=== PATIENT | female | born 1930 | race Caucasian/White ===

== ENCOUNTER 2017-06-04 15:34 | Outpatient (CLI) ==
[2015-11-20 17:26] VITALS: BMI 23.3
[2017-06-04 15:57] LABS: BILIRUBIN,URINE Negative (NEGATIVE); KETONES,URINE Negative (NEGATIVE); LEUKOCYTE ESTERASE ,URINE 1+ (NEGATIVE); NITRITE,URINE Negative (NEGATIVE); PH,URINE 6.5 (5-9); PROTEIN,URINE Negative (NEGATIVE); URINE, BLOOD Trace-lysed (NEGATIVE)
[2017-06-04 16:00] LABS: ADD URINE MICROSCOPIC YES
[2017-06-04 16:09] LABS: BACTERIA,URINE TRACE (NOT PRESENT)
== END 2017-06-04 15:35 | disposition home or self-care (01) ==
LOC: LAB 15:34
PROVIDERS: ATTEND Internal Medicine
DX: R19.7 Diarrhea, unspecified (principal); F98.1 Encopresis not due to a substance or known physiological condition
CPT/HCPCS: 81001; 87086

== ENCOUNTER 2017-08-02 14:19 | Outpatient (CLI) ==
[2017-06-15 21:55] VITALS: BMI 26.1
[2017-08-02 14:27] LABS: BILIRUBIN,URINE Negative (NEGATIVE); KETONES,URINE Negative (NEGATIVE); LEUKOCYTE ESTERASE ,URINE Negative (NEGATIVE); NITRITE,URINE Negative (NEGATIVE); PH,URINE 7.5 (5-9); PROTEIN,URINE Negative (NEGATIVE); URINE, BLOOD Negative (NEGATIVE)
[2017-08-02 14:28] LABS: ADD URINE MICROSCOPIC NO
== END 2017-08-02 14:20 | disposition home or self-care (01) ==
LOC: NONPT 14:19
PROVIDERS: ATTEND Internal Medicine
DX: E86.0 Dehydration (principal); R53.1 Weakness
CPT/HCPCS: 81001; 87086

== ENCOUNTER 2017-08-02 15:28 | Observation (INO) ==
[2017-08-02] MEDS ORDERED: SODIUM CHLORIDE 1,000 ML IV STA (15:35)
--- NOTE | 2017-08-02 16:13 | DI ---
EXAM: Chest one view, frontal view only. HISTORY: Chest pain. COMPARISON: 06/23/2013. FINDINGS: Heart size is normal. There is no vascular congestion. Calcified granulomatous changes p resent. The lungs are otherwise clear without pleural effusion or pneumothorax. No acute osseous ab normality identified. IMPRESSION: No acute process.
--- NOTE | 2017-08-02 17:12 | ED.PDOC ---
General ED Provider: Dr. ERICA HINES JR Chief Complaint: Weakness Stated Complaint[facility] et confusion. Arrived per [facility]. Hx dementia x 9 years. Elev temp 100.0 TA on ER arrival. [ End ]100.0 83 24 94 141/69. elevated blood sugar, mild ataxia,. dementia, cerebral atrophy, B12 deficiancy , IBS,overactive bladder,. THY CHOL ANX ARTH. [facility]. Arrived per [facility]. Hx dementia x 9 years. Elev temp 100.0 TA on ER arrival. [ End ] Time Seen by Physician: 15:35 Information Source: EMT Exam Limitations: No limitations Primary Care Provider: JOSE WEBB Nursing and Triage Documentation Reviewed and Agree: No Reviewed sepsis parameters & appropriate labs ordered?: Yes System Inflammatory Response Syndrome: Pulse >90 BPM Sepsis Protocol: For patient's 13 years and over: Temp is 96.8 and below OR 101 and greater Pulse >90 BPM Resp >20/minute Acutely Altered Mental Status Are patient's symptoms suggestive of a new infection, such as: -Pneumonia -Skin, Soft Tissue -Endocarditis -UTI -Bone, Joint Infection -Implantable Device -Acute Abdominal Infection -Wound Infection -Meningitis -Blood Stream Catheter Infection -Unknown System Inflammatory Response Syndrome: Not Applicable Review of Systems - Review Of Systems Constitutional: Reports: Malaise, Weakness Eyes: Reports: No symptoms Ears, Nose, Mouth, Throat: Reports: No symptoms Respiratory: Reports: No symptoms Cardiac: Reports: No symptoms GI: Reports: No symptoms : Reports: No symptoms Musculoskeletal: Reports: Other Skin: Reports: No symptoms Neurological: Reports: Cognitive dysfunction, Weakness Endocrine: Reports: No symptoms Hematologic/Lymphatic: Reports: No symptoms All Other Systems: Other Past Medical History - Past Medical History Previously Healthy: Yes Endocrine: Reports: Hypothyroid, Dyslipidemia Cardiovascular: Reports: None Respiratory: Reports: None Hematological: Reports: None Gastrointestinal: Reports: None Genitourinary: Reports: None 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: Dementia (Non-Alzheimer's ) Musculoskeletal: Reports: None Cancer: Reports: None Last Menstrual Period: unknown Other Pertinent Past Medical History: Allergic Rhinitis - Surgical History General Surgical History: Reports: Other - Family History Family History: Reports: Unknown - Social History Smoking Status: Never smoker Hx Substance Use: No Alcohol Screening: None Physical Exam - Physical Exam Appearance: Well-appearing Eyes: [place], EOMI, Conjunctiva clear ENT: Ears normal, Nose normal, Oropharynx normal Neck: Supple Respiratory: Airway patent, Breath sounds clear, Breath sounds equal, Respirations nonlabored Cardiovascular: RRR, Pulses normal, No rub, No murmur GI/: Soft, Nontender, No masses, Bowel sounds normal, No Organomegaly Musculoskeletal: No edema, Limited ROM, Limited strength, Calf tenderness ( bilateral without edema not in venous distribution) Skin: Warm, Dry, Normal color Neurological: Sensation intact, Cranial nerves intact, Alert, Disoriented Psychiatric: Affect appropriate (but often angry) Critical Care Note - Critical Care Note Total Time (mins): 20 Course - Course Hematology/Chemistry: 08/02/17 15:55 08/02/17 15:55 Orders, Labs, Meds: Lab Review 08/02/17 08/02/17 08/02/17 15:35 15:55 15:55 WBC 7.34 RBC 4.01 L Hgb 12.3 Hct 36.9 L MCV 92.0 MCH 30.7 MCHC 33.3 RDW Coeff of Daren 13.8 Plt Count 170 Immature Gran % (Auto) 0.4 Neut % (Auto) 72.4 Lymph % (Auto) 13.6 [place] % (Auto) 11.7 H Eos % (Auto) 1.5 Baso % (Auto) 0.4 Immature Gran # (Auto) 0.0 Neut # 5.3 Lymph # 1.0 [place] # 0.9 Eos # 0.1 Baso # 0.0 D-Dimer (Manual) Puncture Site Rr O2 Saturation 95.0 ABG pH 7.498 H ABG pCO2 33.4 L ABG pO2 66.0 L ABG HCO3 25.9 ABG Total CO2 27 ABG Base Excess 3 H Vikas Test + FiO2 % 21.0 Sodium 136 Potassium 3.6 Chloride 102 Carbon Dioxide 24 Anion Gap 13.6 BUN 13 Creatinine 0.81 Estimated GFR (MDRD) 67.00 BUN/Creatinine Ratio 16.04 Glucose 114 Lactic Acid Calcium 8.3 Total Bilirubin 0.4 AST 11 L ALT 6 L Alkaline Phosphatase 77 Total Creatine Kinase 23 Troponin I < 0.0100 B-Natriuretic Peptide Total Protein 5.7 L Albumin 2.9 L Globulin 2.8 Albumin/Globulin Ratio 1.04 Procalcitonin Influenza A (Rapid) Influenza B (Rapid) 08/02/17 08/02/17 12 15:55 15:55 15:55 WBC RBC Hgb Hct MCV MCH MCHC RDW Coeff of Daren Plt Count Immature Gran % (Auto) Neut % (Auto) Lymph % (Auto) [place] % (Auto) Eos % (Auto) Baso % (Auto) Immature Gran # (Auto) Neut # Lymph # [place] # Eos # Baso # D-Dimer (Manual) Puncture Site O2 Saturation ABG pH ABG pCO2 ABG pO2 ABG HCO3 ABG Total CO2 ABG Base Excess Vikas Test FiO2 % Sodium Potassium Chloride Carbon Dioxide Anion Gap BUN Creatinine Estimated GFR (MDRD) BUN/Creatinine Ratio Glucose Lactic Acid 7.7 Calcium Total Bilirubin AST ALT Alkaline Phosphatase Total Creatine Kinase Troponin I B-Natriuretic Peptide 50 Total Protein Albumin Globulin Albumin/Globulin Ratio Procalcitonin < 0.05 Influenza A (Rapid) Influenza B (Rapid) 08/02/17 08/02/17 16:20 17:46 WBC RBC Hgb Hct MCV MCH MCHC RDW Coeff of Daren Plt Count Immature Gran % (Auto) Neut % (Auto) Lymph % (Auto) [place] % (Auto) Eos % (Auto) Baso % (Auto) Immature Gran # (Auto) Neut # Lymph # [place] # Eos # Baso # D-Dimer (Manual) 728.81 Puncture Site O2 Saturation ABG pH ABG pCO2 ABG pO2 ABG HCO3 ABG Total CO2 ABG Base Excess Vikas Test FiO2 % Sodium Potassium Chloride Carbon Dioxide Anion Gap BUN Creatinine Estimated GFR (MDRD) BUN/Creatinine Ratio Glucose Lactic Acid Calcium Total Bilirubin AST ALT Alkaline Phosphatase Total Creatine Kinase Troponin I B-Natriuretic Peptide Total Protein Albumin Globulin Albumin/Globulin Ratio Procalcitonin Influenza A (Rapid) Negative Influenza B (Rapid) Negative Orders Category Date Time Status ABG DRAW REQUEST Stat CARDIO 08/02/17 15:35 Completed EKG-(ED ONLY) Stat CARDIO 08/02/17 15:35 Completed ED INDUSTRY OPERATIONS INVESTIGATOR APPLIED .ONCE EMERGENCY 08/02/17 15:35 Active ED IV/MEDIPORT/POWERPORT .ONCE EMERGENCY 08/02/17 15:35 Active ABG Stat LAB 08/02/17 15:35 Completed B-TYPE NATRIURETIC PEPTIDE Stat LAB 08/02/17 15:55 Completed BLOOD CULTURE Stat LAB 08/02/17 15:55 Received CBC W/ AUTO DIFF Stat LAB 08/02/17 15:55 Completed COMPREHENSIVE METABOLIC PANEL Stat LAB 08/02/17 15:55 Completed CREATINE KINASE Stat LAB 08/02/17 15:55 Completed D-DIMER Stat LAB 08/02/17 16:20 Completed FLU A & B RAPID TEST [RAPID FLU A/B] Stat LAB 08/02/17 17:46 Completed LACTIC ACID Stat LAB 08/02/17 15:55 Completed PROCALCITONIN Stat LAB 08/02/17 15:55 Completed TROPONIN I Stat LAB 08/02/17 15:55 Completed 0.9 % Sodium Chloride [Saline Flush] MEDS 08/02/17 15:35 Active 1 syr IVF PRN PRN Sodium Chloride 0.9% [Sodium Chloride] 1,000 ml MEDS 08/02/17 15:35 Discontinued IV BOLUS CHEST, 1V AP ONLY Stat RADS 08/02/17 15:35 Completed Medications Generic Name Dose Route Start Last Admin Trade Name Freq PRN Reason Stop Dose Admin Sodium Chloride 1 syr 08/02/17 15:35 Saline Flush IVF PRN PRN To flush IV Discontinued Medications Generic Name Dose Route Start Last Admin Trade Name Freq PRN Reason Stop Dose Admin Sodium Chloride 1,000 mls @ 1,000 mls/hr 08/02/17 15:35 08/02/17 15:51 Sodium Chloride IV 08/02/17 16:34 1,000 mls/hr BOLUS STA Administration Vital Signs: Temp Pulse Resp BP Pulse Ox 08/02/17 15:30 100.0 F H 83 24 141/69 H 94 L Departure - Departure Time of Disposition: 18:41 Disposition: PLACED OBSERVATION Discharge Problem: Muscle weakness, Dehydration Dementia Qualifiers: Dementia type: unspecified type Dementia behavioral disturbance: with behavioral disturbance Qualified Code(s): F03.91 - Unspecified dementia with behavioral disturbance Condition: Stable Pt referred to PMD for follow-up: Yes Allergies/Adverse Reactions: Allergies yellow apples Adverse Reaction (Uncoded 08/02/17 16:15) Home Medications: Ambulatory Orders Cholecalciferol (Vitamin D3) [Vitamin D3] 4,000 unit PO DAILY 11/19/15 Donepezil HCl 10 mg PO DAILY 11/19/15 Fluticasone Propionate 110 Mcg [Flovent Hfa 110 Mcg] 2 puff IH BID 11/19/15 L.acidoph,Paracasei, B.lactis [Probiotic] 1 each PO DAILY 11/19/15 Levothyroxine Sodium [Tirosint] 75 mcg PO DAILY 11/19/15 Loratadine 10 mg PO DAILY 11/19/15 Memantine HCl [Namenda Xr] 28 mg PO DAILY 11/19/15 Divalproex Sodium [Depakote Sprinkle] 125 mg PO BID 06/15/17 Solifenacin Succinate [Vesicare] 5 mg PO BEDTIME 06/15/17 Acetaminophen 500 mg PO Q6HR PRN 08/02/17 Alprazolam [Xanax] 0.25 mg PO BID PRN 08/02/17 Estrogens, Conjugated [Premarin Vaginal Cream] 1 applic VG DAILY PRN 08/02/17 Metronidazole 70 ml TP DAILY 08/02/17 Triamcinolone Acetonide [Triamcinolone Acetonide 0.025% Cream] 15 gm TP BID PRN 08/02/17 Transfer Form Completed: No Disposition Discussed With: Patient, Family
[2017-08-02] MEDS ORDERED: TYLENOL PO PRN ×2 (18:43→21:21)
[2017-08-02] MEDS ORDERED: PREMARIN VAGINAL CREAM VAGINAL PRN (18:46)
[2017-08-02] MEDS ORDERED: TRIAMCINOLONE ACETONIDE TP PRN (18:46)
[2017-08-02 20:05] VITALS: BMI 27.6
[2017-08-02] MEDS ORDERED: VESICARE PO SCH (21:00)
[2017-08-02] MEDS ORDERED: DIVALPROEX SODIUM 125 MG PO SCH (21:00)
[2017-08-02] MEDS ORDERED: FLOVENT HFA 110 MCG IH SCH (21:00)
[2017-08-02] MEDS ORDERED: XANAX PO PRN (21:21)
[2017-08-02] MEDS: SODIUM CHLORIDE 1,000 ML IV SCH (23:21)
[2017-08-03] MEDS ORDERED: XANAX PO PRN (08:00)
[2017-08-03] MEDS ORDERED: XANAX PO STA (09:09)
--- NOTE | 2017-08-03 09:45 | PCM.PROG ---
Attending Provider: ATTENDING PROVIDER: Dr. JOSE WEBB This patient is seen with Maci Stokes, Nurse Practitioner. DATE OF SERVICE: 08/03/17 SUBJECTIVE: This 87 year old WHITE/ F was hospitalized 08/02/17. Alert up to use the bathroom. Confused due to dementia. Still experiencing leg weakness. REVIEW OF SYSTEMS: CONSTITUTIONAL: No night sweats. No fatigue, malaise, lethargy. No fever or chills. General weakness. HEENT: Eyes: No visual changes. No eye pain. No eye discharge. ENT: No runny nose. No epistaxis. No sinus pain. No odynophagia. No congestion. RESPIRATORY: No cough, no congestion. No hemoptysis. No shortness of breath. CARDIOVASCULAR: No angina symptoms. No CHF symptoms. No atypical chest pain for CAD. No palpitations. No orthopnea.. GASTROINTESTINAL: No abdominal pain. No nausea or vomiting. No diarrhea or constipation. No hematemesis. No hematochezia. GENITOURINARY: No urgency. No frequency. No dysuria. No hematuria. No obstructive symptoms. No discharge. No pain. No significant abnormal bleeding. MUSCULOSKELETAL: No musculoskeletal pain; no joint swelling. NEUROLOGICAL: Awake, alert, confusion. No headache. No neck pain. No syncope. No seizures. No dizziness. PSYCHIATRIC: Not anxious. No depression. No suicidal thoughts. No homicidal thoughts. SKIN: No rash. No lesions. No wounds. ENDOCRINE: No unexplained weight loss. No weight gain. HEMATOLOGIC/LYMPHATIC: No anemia. No purpura. No petechiae. No prolonged or excessive bleeding. No palpable lymph nodes. PHYSICAL EXAMINATION: GENERAL: The patient is awake, alert and oriented, in no distress. VITAL SIGNS: Temperature 98.9 F, Pulse 83, Respiratory Rate 18, BP 135/72, Pulse Ox 92% HEENT: Head normocephalic, atraumatic. Eyes: Extraocular muscles are intact. Pupils are equal, round and reactive to light and accommodation. Ears: No lesions. Nose appeared normal. Throat: No exudate or erythema. NECK: Supple. No JVD, no carotid bruit. No lymphadenopathy or thyromegaly. LUNGS: Diminished breath sounds. Clear to auscultation. Percussion note normal. Chest symmetrical. HEART: S1, S2, no S3. No murmurs. No cyanosis or clubbing. No ascites. Pulses: Dorsalis pedis and posterior tibial pulses +1 to +2 both sides. ABDOMEN: Soft. Non-tender. Bowel sounds active. No CVA tenderness. No mass felt. EXTREMITIES: No edema. Full range of motion of all extremities, equal. NEUROLOGIC: No focal deficit. Cranial nerves II through XII are grossly intact. No headache, no double vision or headache. SKIN: Not dry. Intact. Turgor-normal. LYMPHATIC: No palpable lymph nodes/no lymphedema. MUSCULOSKELETAL: Normal joints with no swelling. Muscle tone is normal. LAB REVIEW: 08/03/17 01:20 08/03/17 01:20 08/03/17 01:31: Urine Color Yellow, Urine Clarity Clear, Urine pH 7.0, Ur Specific [place] 1.015, Urine Protein Negative, Urine Glucose (UA) Negative, Urine Ketones Trace, Urine Blood Trace-intact, Urine Nitrite Negative, Urine Bilirubin Negative, Urine Urobilinogen 0.2, Ur Leukocyte Esterase 1+, Urine Microscopic RBC 2-5, Urine Microscopic WBC 10-20, Ur Squamous Epith Cells 0-2, Ur Renal Epithelial Cell 0-2, Urine Bacteria Trace 08/03/17 01:20: Sodium 140, Potassium 3.6, Chloride 105, Carbon Dioxide 26, Anion Gap 12.6, BUN 13, Creatinine 0.80, Estimated GFR (MDRD) 68.00, BUN/ Creatinine Ratio 16.25, Glucose 112, Calcium 8.1 L, Total Bilirubin 0.3, AST 11 L, ALT 6 L, Alkaline Phosphatase 69, Total Protein 5.4 L, Albumin 2.6 L, Globulin 2.8, Albumin/Globulin Ratio 0.93 08/03/17 01:20: WBC 6.58, RBC 3.87 L, Hgb 12.0, Hct 36.1 L, MCV 93.3, MCH 31.0, MCHC 33.2, RDW Coeff of Daren 13.7, Plt Count 151, Immature Gran % (Auto) 0.3, Neut % (Auto) 68.2, Lymph % (Auto) 15.5, [place] % (Auto) 12.2 H, Eos % (Auto) 3.3 , Baso % (Auto) 0.5, Immature Gran # (Auto) 0.0, Neut # 4.5, Lymph # 1.0, [place] # 0.8, Eos # 0.2, Baso # 0.0 08/03/17 01:20: Total Creatine Kinase 23, Troponin I < 0.0100 ASSESSMENT: Please see below. Acute decline in physical function Possible UTI Dementia PLAN: IV Rocephin [address] of brain without Plan and coordination of the patient's care discussed in the presence of Seam Checker and nurse. SCRIBED BY: SONG NARANJO, Bench Worker Hollow Handle scribed while in presence of service performed by Dr. Webb/Maci Stokes APRN on 08/03/17 ([id number])
[2017-08-03] MEDS: FLOVENT HFA 110 MCG IH SCH ×2 (09:58→20:27)
[2017-08-03] MEDS: METRONIDAZOLE TP SCH (09:59)
[2017-08-03] MEDS: NON-FORMULARY MEDICATION (Levothyroxine Sodium [Tirosint] 75 MCG) PO SCH (10:00)
[2017-08-03] MEDS: CHOLECALCIFEROL 4000 UNIT PO SCH (10:01)
[2017-08-03] MEDS: CLARITIN PO SCH (10:01)
[2017-08-03] MEDS: [UNRECOGNIZED DRUG - OTHER] PO SCH (10:02)
[2017-08-03] MEDS: DIVALPROEX SODIUM 125 MG PO SCH ×2 (10:02→20:26)
[2017-08-03] MEDS: NON-FORMULARY MEDICATION (L.Acidoph,Paracasei, B.Lactis [Probiotic] 1 EACH) PO SCH (10:02)
[2017-08-03] MEDS: ROCEPHIN 1 GM in SODIUM CHLORIDE 50 ML IV SCH (10:06)
--- NOTE | 2017-08-03 12:36 | CT ---
EXAM: CT BRAIN HISTORY: Sudden change in mental status, unable to stand TECHNIQUE: CT brain without intravenous contrast. 5-mm axial sections with Reformations. COMPARISON: 06/15/2017 FINDINGS: There is generalized atrophy. Ventriculomegaly is present in part likely related to a compensatory n ature to the atrophy. There is at least moderate periventricular and deep white matter low attenuatio n which although nonspecific is suggestive of chronic microvascular ischemic change. These findings are stable. Brain otherwise is unremarkable without distinct evidence of hemorrhage or large vessel distribution recent ischemic infarction. There is no suggestion of acute hydrocephalus or subdural fluid collecti on. No mass or mass effect. Cranium is within normal limits. Mastoid processes are aerated. The visualized paranasal sinuses a re clear. IMPRESSION: Involutional changes similar to that seen previously with no obvious acute intracranial abnormality. Previously seen small subdural hematoma has resolved.
[2017-08-03] MEDS: SODIUM CHLORIDE 1,000 ML IV SCH (12:48)
[2017-08-03] MEDS ORDERED: ARICEPT PO SCH (21:00)
[2017-08-03] MEDS ORDERED: NON-FORMULARY MEDICATION (Memantine Hcl [Namenda Xr] 28 MG) PO SCH (21:00)
[2017-08-03] MEDS ORDERED: VESICARE PO SCH (21:00)
[2017-08-04] MEDS: NON-FORMULARY MEDICATION (Levothyroxine Sodium [Tirosint] 75 MCG) PO SCH (05:52)
[2017-08-04] MEDS: NON-FORMULARY MEDICATION (L.Acidoph,Paracasei, B.Lactis [Probiotic] 1 EACH) PO SCH (08:58)
[2017-08-04] MEDS: DIVALPROEX SODIUM 125 MG PO SCH (08:58)
[2017-08-04] MEDS: [UNRECOGNIZED DRUG - OTHER] PO SCH (08:59)
[2017-08-04] MEDS: CHOLECALCIFEROL 4000 UNIT PO SCH (08:59)
[2017-08-04] MEDS: CLARITIN PO SCH (08:59)
[2017-08-04] MEDS: FLOVENT HFA 110 MCG IH SCH (08:59)
[2017-08-04] MEDS: METRONIDAZOLE TP SCH (09:00)
[2017-08-04 10:06] VITALS: BP 133/72; TEMP 97.5
[2017-08-04] MEDS ORDERED: ROCEPHIN IM STA (12:01)
[2017-08-04] MEDS ORDERED: LIDOCAINE HCL 1% SDV SUBCUT STA (12:01)
[2017-08-04] MEDS ORDERED: ROCEPHIN ONE (12:11)
[2017-08-04] MEDS ORDERED: LIDOCAINE 2% 20 ML MDV ONE (12:12)
[2017-08-04] MEDS: ROCEPHIN 1 GM in SODIUM CHLORIDE 50 ML IV SCH (12:41)
--- NOTE | 2017-08-17 14:28 | PN ---
DATE OF SERVICE: 08/03/17 SUBJECTIVE: The patient is feeling fine. She is alert and her appetite has improved. The son is present in the room. She is still weak in the legs. CAT scan did not show any acute findings. PHYSICAL EXAMINATION: GENERAL: The patient is oriented to person. VITAL SIGNS: Temperature 98.9, pulse 83, respiratory rate 18, blood pressure 135/72 and pulse ox 92%. HEENT: Head normocephalic, atraumatic. Eyes: Extraocular muscles are intact. Pupils are equal, round and reactive to light and accommodation. Ears: No lesions. Nose appeared normal. Throat: No exudate or erythema. NECK: Supple. No JVD, no carotid bruit. No lymphadenopathy or thyromegaly. LUNGS: Decreased breath sounds but clear to auscultation. Percussion note normal. Chest symmetrical. HEART: S1, S2, no S3. No murmurs. No cyanosis or clubbing. No ascites. Pulses: Dorsalis pedis and posterior tibial pulses +1 to +2 both sides. ABDOMEN: Soft. Nontender. Bowel sounds active. No CVA tenderness. No mass felt. EXTREMITIES: No edema. Full range of motion of all extremities, equal. NEUROLOGIC: No focal deficit. Cranial nerves II through XII are grossly intact. No headache, no double vision or headache. SKIN: Not dry. Intact. Turgor - normal. LYMPHATIC: No palpable lymph nodes/no lymphedema. MUSCULOSKELETAL: Normal joints with no swelling. Muscle tone is normal. LABS: Hgb 12.0, hct 36, creatinine 0.8, BUN 13. ASSESSMENT: 1. Worsening of dementia 2. Weakness in the legs with inability to ambulate like she had it before. NOTE: The patient was able to ambulate with the walker. PLAN: 1. Hydration status needs to be improved 2. Continue Keflex for possibility of urinary tract infection 3. Appetite has improved 4. Encouraged the patient to eat. 5. The patient is living in [facility]. She won't be able to go back there. The family has agreed to transfer the patient to [facility] where she will further undergo PT/OT 6. We will continue all the other medication has before. TIME SPENT: More than 30 minutes. Plan and coordination of the patient's care discussed in the presence of nurse. CHRISTY
--- NOTE | 2017-08-17 14:39 | DS ---
DATE OF SERVICE: 08/04/17 FINAL DIAGNOSIS: 1. Dehydration 2. Worsening of dementia 3. Weakness could be related to dehydration, worsening of dementia with inactivity 4. Possibility of kidney infection. 5. Status post cholecystectomy 6. Thyroidectomy on Synthroid supplement 7. Depression with anxiety DISCHARGE INSTRUCTIONS: Discharge to [facility]. Continue home medication. Followup with Dr. Vides in 5-7 days. MEDICATIONS AT DISCHARGE: Levothyroxine Namenda Depakote Xanax Premarin Vaginal Cream NEW PRESCRIPTIONS: Keflex DIET INSTRUCTIONS: As tolerated ACTIVITY: Gradually resume activities as tolerated. SMOKING: Never smoker DISEASE SPECIFIC EDUCATION: Hydration PT/OT Antibiotic use. HOSPITAL COURSE: 87 year old white female who has dementia but she is up and about walks with the walker was hospitalized with weakness and inability to walk. The patient had mild dehydration clinically was given IV fluids also antibiotics was given with possibility of urinary tract infection. The colony count was less than 30, 000 but very likely could be kidney infection which was subclinical probably made the condition worse. In any case on discharge the patient was more alert and her appetite had improved. She was still weak She has been resident of Assisted Living and now with not able to walk she would be discharged to [facility]. The family was agreeable to this change. The patient was discharged on PT/OT. CONDITION: Stable. TIME SPENT: More than 60 minutes. CHRISTY
--- NOTE | 2017-08-17 14:40 | PN ---
08/02/17: Level 5, Observation 08/03/17: Intermediate. Observation 08/04/17: D as in discharge Observation . MTDD
== END 2017-08-04 15:03 | disposition home or self-care (01) ==
LOC: ED 15:28 → MEDSURG A 17:59
PROVIDERS: ADMIT Internal Medicine; ATTEND Internal Medicine
DX: E86.0 Dehydration (principal); M62.81 Muscle weakness (generalized); F03.91 Unspecified dementia, unspecified severity, with behavioral disturbance; F41.8 Other specified anxiety disorders; R50.9 Fever, unspecified; E89.0 Postprocedural hypothyroidism; R26.2 Difficulty in walking, not elsewhere classified; Z90.49 Acquired absence of other specified parts of digestive tract; Z79.899 Other long term (current) drug therapy
CPT/HCPCS: 36415; 80053; 81001; 82550; 82803; 83605; 83880; 84145; 84484; 85025; 85379; 87040; 87086; 87804; 93005; 93010; 96360; 99284

== ENCOUNTER 2017-08-16 12:33 | Emergency (ER) ==
[2017-08-16 12:43] VITALS: BP 128/70; TEMP 96.9; BMI 24.7
--- NOTE | 2017-08-16 13:30 | ED.PDOC ---
General ED Provider: Dr. LAURA MCKINLEY Chief Complaint: Weakness Stated Complaint: Daughter states patient was referred here by Dr Webb after her nurse heard crackles in her lt chest this morning. Also patient has been more short of breath recently along with difficulty witn ambulation Time Seen by Physician: 13:00 Mode of Arrival: Ambulance Information Source: Patient, EMT Exam Limitations: Dementia Primary Care Provider: JOSE WEBB Referred to ED by: PCP Nursing and Triage Documentation Reviewed and Agree: Yes Reviewed sepsis parameters & appropriate labs ordered?: Yes System Inflammatory Response Syndrome: Not Applicable Sepsis Protocol: For patient's 13 years and over: Temp is 96.8 and below OR 101 and greater Pulse >90 BPM Resp >20/minute Acutely Altered Mental Status Are patient's symptoms suggestive of a new infection, such as: -Pneumonia -Skin, Soft Tissue -Endocarditis -UTI -Bone, Joint Infection -Implantable Device -Acute Abdominal Infection -Wound Infection -Meningitis -Blood Stream Catheter Infection -Unknown Review of Systems - Review Of Systems Constitutional: Reports: Weakness Eyes: Reports: No symptoms Ears, Nose, Mouth, Throat: Reports: No symptoms Respiratory: Reports: Wheezing Cardiac: Reports: No symptoms GI: Reports: No symptoms : Reports: No symptoms Musculoskeletal: Reports: No symptoms Skin: Reports: No symptoms Neurological: Reports: Weakness Endocrine: Reports: No symptoms Hematologic/Lymphatic: Reports: No symptoms All Other Systems: Reviewed and Negative Past Medical History - Past Medical History Previously Healthy: Yes Endocrine: Reports: Hypothyroid, Dyslipidemia Cardiovascular: Reports: None Respiratory: Reports: None Hematological: Reports: None Gastrointestinal: Reports: None Genitourinary: Reports: None 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: Dementia (Non-Alzheimer's ) Musculoskeletal: Reports: None Cancer: Reports: None Last Menstrual Period: menopause Other Pertinent Past Medical History: Allergic Rhinitis - Surgical History General Surgical History: Reports: Other - Family History Family History: Reports: Unknown - Social History Smoking Status: Never smoker Hx Substance Use: No Alcohol Screening: None Physical Exam - Physical Exam Appearance: Well-appearing Ill-appearing: None Pain Distress: None Eyes: [place], EOMI, Conjunctiva clear ENT: Ears normal, Nose normal, Oropharynx normal Respiratory: Airway patent, Breath sounds clear, Breath sounds equal Cardiovascular: RRR, Pulses normal, No rub GI/: Soft, Nontender, No masses, Bowel sounds normal, No Organomegaly Musculoskeletal: Normal strength Skin: Warm, Dry Neurological: Sensation intact, Motor intact, Reflexes intact, Cranial nerves intact, Alert, Disoriented Psychiatric: Affect appropriate, Mood appropriate Critical Care Note - Critical Care Note Total Time (mins): 0 Course - Course Hematology/Chemistry: 08/16/17 13:50 08/16/17 13:50 Orders, Labs, Meds: Lab Review 08/16/17 08/16/17 08/16/17 13:06 13:50 13:50 WBC 8.65 RBC 4.61 Hgb 13.9 Hct 42.1 MCV 91.3 MCH 30.2 MCHC 33.0 RDW Coeff of Daren 13.6 Plt Count 363 Immature Gran % (Auto) 1.3 Neut % (Auto) 71.8 Lymph % (Auto) 14.3 [place] % (Auto) 8.3 Eos % (Auto) 3.6 Baso % (Auto) 0.7 Immature Gran # (Auto) 0.1 Neut # 6.2 Lymph # 1.2 [place] # 0.7 Eos # 0.3 Baso # 0.1 Puncture Site Rr O2 Saturation 95.0 ABG pH 7.513 H* ABG pCO2 36.9 ABG pO2 69.0 L ABG HCO3 29.7 H ABG Total CO2 31 H ABG Base Excess 7 H Vikas Test + O2 Delivery Device Oxygen Liter Flow FiO2 % 21.0 Sodium 136 Potassium 3.6 Chloride 94 L Carbon Dioxide 32 H Anion Gap 13.6 BUN 11 Creatinine 0.82 Estimated GFR (MDRD) 66.00 BUN/Creatinine Ratio 13.41 Glucose 102 Calcium 9.5 Total Bilirubin 0.3 AST 15 ALT 8 L Alkaline Phosphatase 69 Total Protein 6.7 Albumin 2.7 L Globulin 4.0 Albumin/Globulin Ratio 0.68 Urine Color Urine Clarity Urine pH Ur Specific [place] Urine Protein Urine Glucose (UA) Urine Ketones Urine Blood Urine Nitrite Urine Bilirubin Urine Urobilinogen Ur Leukocyte Esterase Urine Microscopic WBC Ur Squamous Epith Cells 08/16/17 08/16/17 16:04 16:42 WBC RBC Hgb Hct MCV MCH MCHC RDW Coeff of Daren Plt Count Immature Gran % (Auto) Neut % (Auto) Lymph % (Auto) [place] % (Auto) Eos % (Auto) Baso % (Auto) Immature Gran # (Auto) Neut # Lymph # [place] # Eos # Baso # Puncture Site Rr O2 Saturation 94.0 L ABG pH 7.464 H ABG pCO2 40.9 ABG pO2 67.0 L ABG HCO3 29.4 H ABG Total CO2 31 H ABG Base Excess 6 H Vikas Test + O2 Delivery Device Nc Oxygen Liter Flow 2.00 FiO2 % 28.0 Sodium Potassium Chloride Carbon Dioxide Anion Gap BUN Creatinine Estimated GFR (MDRD) BUN/Creatinine Ratio Glucose Calcium Total Bilirubin AST ALT Alkaline Phosphatase Total Protein Albumin Globulin Albumin/Globulin Ratio Urine Color Yellow Urine Clarity Clear Urine pH 6.0 Ur Specific [place] 1.010 Urine Protein Negative Urine Glucose (UA) Negative Urine Ketones Trace Urine Blood Negative Urine Nitrite Negative Urine Bilirubin Negative Urine Urobilinogen 0.2 Ur Leukocyte Esterase 1+ Urine Microscopic WBC 2-5 Ur Squamous Epith Cells 5-10 Orders Category Date Time Status ABG DRAW REQUEST Stat CARDIO 08/16/17 13:10 Completed ABG DRAW REQUEST Stat CARDIO 08/16/17 16:50 Completed EKG-(IP & OP ONLY) Stat CARDIO 08/16/17 14:42 Completed NEBULIZER TREATMENT Stat CARDIO 08/16/17 15:30 Completed ABG Stat LAB 08/16/17 13:06 Completed ABG Stat LAB 08/16/17 16:42 Completed CBC W/ AUTO DIFF Stat LAB 08/16/17 13:50 Completed CMP [COMPREHENSIVE METABOLIC PANEL] Stat LAB 08/16/17 13:50 Completed URINALYSIS C & S IF INDICATED Stat LAB 08/16/17 16:04 Completed Albuterol Sulfate 0.083% Neb [Albuterol 0.083% Neb] MEDS 08/16/17 15:30 Discontinued 1 vial NEB ONCE STA CHEST, 2 VIEWS PA & LAT Stat RADS 08/16/17 13:32 Completed Medications Discontinued Medications Generic Name Dose Route Start Last Admin Trade Name Freq PRN Reason Stop Dose Admin Albuterol Sulfate 1 vial 08/16/17 15:30 08/16/17 15:39 Albuterol 0.083% Neb NEB 08/16/17 15:31 1 vial ONCE STA Administration Vital Signs: Temp Pulse Resp BP Pulse Ox 08/16/17 12:34 96.9 F L 60 12 128/70 94 L Departure - Departure Time of Disposition: 18:00 Disposition: HOME SELF-CARE Discharge Problem: Weakness, Chest congestion Discharge Problem: (Ruled Out): COPD (chronic obstructive pulmonary disease) Instructions: Weakness (ED) Condition: Fair Pt referred to PMD for follow-up: Yes (Dr Webb) Allergies/Adverse Reactions: Allergies yellow apples Adverse Reaction (Uncoded 08/02/17 16:15) Home Medications: Ambulatory Orders Cholecalciferol (Vitamin D3) [Vitamin D3] 4,000 unit PO DAILY 11/19/15 Donepezil HCl 10 mg PO BEDTIME 11/19/15 Fluticasone Propionate 110 Mcg [Flovent Hfa 110 Mcg] 2 puff IH BID 11/19/15 L.acidoph,Paracasei, B.lactis [Probiotic] 1 each PO DAILY 11/19/15 Levothyroxine Sodium [Tirosint] 75 mcg PO DAILY 11/19/15 Loratadine 10 mg PO DAILY 11/19/15 Memantine HCl [Namenda Xr] 28 mg PO DAILY 11/19/15 Divalproex Sodium [Depakote Sprinkle] 125 mg PO BID 06/15/17 Solifenacin Succinate [Vesicare] 5 mg PO BEDTIME 06/15/17 Acetaminophen 500 mg PO Q6HR PRN 08/02/17 Alprazolam [Xanax] 0.25 mg PO BID PRN 08/02/17 Estrogens, Conjugated [Premarin Vaginal Cream] 1 applic VG DAILY PRN 08/02/17 Metronidazole 70 ml TP DAILY 08/02/17 Triamcinolone Acetonide [Triamcinolone Acetonide 0.025% Cream] 15 gm TP BID PRN 08/02/17 Evelin Richx 1 cap PO DAILY 08/03/17
--- NOTE | 2017-08-16 14:22 | DI ---
EXAM: Chest two views HISTORY: Respiratory congestion COMPARISON: 08/02/2017 TECHNIQUE: Two views of the chest were performed FINDINGS: No airspace consolidation. Granulomatous calcification. There is no pleural effusion or pneumothorax. The heart is normal in size. The mediastinal contour is normal. There are no acute a bnormalities of the bones. IMPRESSION: No acute cardiopulmonary process.
[2017-08-16] MEDS ORDERED: ALBUTEROL 0.083% NEB NEB STA (15:30)
== END 2017-08-16 18:10 | disposition home or self-care (01) ==
LOC: ED 12:33
DX: R53.1 Weakness (principal); R09.89 Other specified symptoms and signs involving the circulatory and respiratory systems; R06.02 Shortness of breath; E03.9 Hypothyroidism, unspecified; E78.5 Hyperlipidemia, unspecified; F03.90 Unspecified dementia, unspecified severity, without behavioral disturbance, psychotic disturbance, mood disturbance, and anxiety; Z79.899 Other long term (current) drug therapy
CPT/HCPCS: 36415; 80053; 81001; 82803; 85025; 93005; 93010; 94640; 99285